=== PATIENT | female | born 1995 | race Caucasian/White ===

== ENCOUNTER 2016-09-22 16:48 | Emergency (ER) | payer BC, OTHER ==
[~2016-09-22] VITALS: Ht 157.5 cm; Wt 68.0 kg
[2016-09-22] MEDS ORDERED: BCP (17:25)
[2016-09-22 17:26] VITALS: BP 126/65; PULSE 89; RESP 18; TEMP 98.2; O2SAT 100
[2016-09-22 18:26] LABS: AUTOMATED NEUTROPHIL # 3.9 TH/MM3 (1.8-7.7); BASOPHIL # 0.1 TH/MM3 (0-0.2); BASOPHIL % 1.1 % (0.0-2.0); EOSINOPHIL # 0.2 TH/MM3 (0-0.4); EOSINOPHIL % 2.7 % (0.0-4.0); HEMATOCRIT 38.8 % (35.0-46.0); HEMO FLAGS DIFF FINAL; LYMPHOCYTE # 1.7 TH/MM3 (1.0-4.8); MEAN CORPUSCULAR HGB CONC 33.7 % (32.0-36.0); MONO % 5.6 % (0.0-8.0); NEUT % 63.6 % (16.0-70.0); PLATELET COUNT 311 TH/MM3 (150-450); RED BLOOD COUNT 4.51 MIL/MM3 (4.00-5.30); WHITE BLOOD COUNT 6.2 TH/MM3 (4.0-11.0)
[2016-09-22 18:33] LABS: AMPHETAMINE, URINE NEG (NEG); BARBITURATES, URINE NEG (NEG); COCAINE, URINE NEG (NEG)
--- NOTE | 2016-09-22 18:43 | PD ---
HPI Chief Complaint: Psychiatric Symptoms Time Seen by Provider: 18:39 Travel History International Travel<30 days: No Contact w/Intl Traveler<30days: No Traveled to known affect area: No History of Present Illness HPI 20-year-old female that presents to the ED for evaluation of psychiatric illness. Patient was Daniels acted by police after apparently mom contact the police because patient made some the Prevacid statements on Facebook and she was concerned. Patient has a history of depression and anxiety. Per patient she currently takes medications but she's been off of them because per patient it only worked for her. Per patient she does have an appointment next week with a psychiatrist to get evaluated for this and possibly start new medications. She'll partially mid the Facebook almonds and now she is here. She denies any suicidal or homicidal ideation to me. No drug or alcohol abuse. Denies any medical issues. Per patient her symptoms are moderate. Per patient she feels depressed, anhedonic as well as sad. Denies any other medical complaint at this time. No pain. Nothing makes the symptoms better or worse. PFSH Past Medical History Anxiety: Yes ?: Not Social History Alcohol Use: No Tobacco Use: Yes Allergies-Medications (Allergen,Severity, Reaction): Coded Allergies: No Known Allergies (Unverified , 09/22/16) Reported Meds & Prescriptions Reported Meds & Active Scripts Active Reported [Bcp] Review of Systems General / Constitutional: No: Fever, Chills, Weight Gain, Weight Loss, Other Eyes: No: Diploplia, Blurred Vision, Photophobia, Drainage, Redness, Foreign Body Sensation, Pain, Tearing, Blind Spots, Visual changes, Blindness, Other HENT: No: Headaches, Vertigo, Lightheadedness, Sore Throat, Rhinitis, Rhinorrhea, Congestion, Nosebleed, Neck Stiffness, Neck Pain, Masses, Gingival Bleeding, Dental Difficulties, Ear Discharge, Earache, Other Cardiovascular: No: Chest Pain or Discomfort, Palpitations, Irregular Rhythm, Tachycardia, Diaphoresis, Syncope, Dyspnea on exertion, Varicosities, Edema, Cyanosis, Varicosities, Phlebitis, Claudication, Other Respiratory: No: Cough, Shortness of Breath, Wheezing, Sneezing, Orthopnea, Hemoptysis, Stridor, Night Sweats, Pleuritic Pain, Other Gastrointestinal: No: Nausea, Vomiting, Diarrhea, Abdominal Pain, Hematemesis, Hematochezia, Constipation, Changes in Bowel Habits, Indigestion, Dysphagia, Loss of Appetite, Other Genitourinary: No: Urgency, Frequency, Dysuria, Nocturia, Hematuria, Decreased Urinary Output, Oliguria, Hesitancy, Dribbling, Incontinence, Pelvic Pain, Flank Pain, Dyspareunia, Discharge, Dysmenorrhea, Menorrhagia, Metorrhagia, Vaginal Bleeding, Other Musculoskeletal: No: Myalgias, Arthralgias, Limited ROM, Weakness, Cramping, Edema, Pain, Atrophy, Other Skin: No Rash, No Itching, No Dryness, No Lumps, No Hives, No Change in Pigmentation, No Change in nails, No Alopecia, No Lesions, No Breast Lumps, No Breast Tenderness, No Breast Swelling, No Other Neurologic: No: Weakness, Dizziness, Syncope, Focal Abnormalities, Coordination Problem, Tremor, Ataxia, Headache, Change in Mentation, Slurred Speech, Paresthesia, Incontinence, Seizures, Sensory Disturbance, Other Psychiatric: Positive: Anxiety, Depression, No: Suicidal Ideations, Disorder of Thought, Mood Disorder, Substance Abuse, Homicidal Ideation, Other Endocrine: No: Heat Intolerance, Cold Intolerance, Polyuria, Polydipsia, Other Hematologic/Lymphatic: No: Easy Bruising, Lymph Node Enlargement, Other Physical Exam Narrative GENERAL: SKIN: Warm and dry. HEAD: Atraumatic. Normocephalic. EYES: Pupils equal and round 4 mm reactive to light and accommodation. No scleral icterus. No injection or drainage. ENT: No nasal bleeding or discharge. Mucous membranes pink and moist. Tongue is midline. No uvula deviation. NECK: Trachea midline. No JVD. CARDIOVASCULAR: Regular rate and rhythm. No murmurs, S3, S4. RESPIRATORY: No accessory muscle use. Clear to auscultation. Breath sounds equal bilaterally. GASTROINTESTINAL: Abdomen soft, non-tender, nondistended. Hepatic and splenic margins not palpable. MUSCULOSKELETAL: Extremities without clubbing, cyanosis, or edema. No obvious deformities. Full range of motion of the upper and lower extremities bilaterally. 2+ pulses bilaterally. NEUROLOGICAL: Awake and alert. No obvious cranial nerve deficits. Motor grossly within normal limits. Five out of 5 muscle strength in the arms and legs. Normal speech. PSYCHIATRIC: Depressed mood and affect; insight and judgment normal. Data Data Last Documented VS Vital Signs Date Time Temp Pulse Resp B/P Pulse Ox O2 Delivery O2 Flow Rate FiO2 09/22/16 17:26 98.2 89 18 126/65 100 Room Air Orders Complete Blood Count With Diff (09/22/16 17:38) Comprehensive Metabolic Panel (09/22/16 17:38) Psych Screen (09/22/16 17:38) Drug Screen, Random Urine (09/22/16 17:38) Alcohol (Ethanol) (09/22/16 17:38) Labs Laboratory Tests Test 09/22/16 18:15 White Blood Count 6.2 TH/MM3 Red Blood Count 4.51 MIL/MM3 Hemoglobin 13.1 GM/DL Hematocrit 38.8 % Mean Corpuscular Volume 86.0 FL Mean Corpuscular Hemoglobin 29.0 PG Mean Corpuscular Hemoglobin 33.7 % Concent Red Cell Distribution Width 14.0 % Platelet Count 311 TH/MM3 Mean Platelet Volume 8.3 FL Neutrophils (%) (Auto) 63.6 % Lymphocytes (%) (Auto) 27.0 % Monocytes (%) (Auto) 5.6 % Eosinophils (%) (Auto) 2.7 % Basophils (%) (Auto) 1.1 % Neutrophils # (Auto) 3.9 TH/MM3 Lymphocytes # (Auto) 1.7 TH/MM3 Monocytes # (Auto) 0.3 TH/MM3 Eosinophils # (Auto) 0.2 TH/MM3 Basophils # (Auto) 0.1 TH/MM3 CBC Comment DIFF FINAL Differential Comment MDM Medical Decision Making Medical Screen Exam Complete: Yes Emergency Medical Condition: Yes Medical Record Reviewed: Yes Interpretation(s) CBC Diagram 09/22/16 18:15 Differential Diagnosis Depression versus suicidal ideation versus anxiety versus adjustment disorder versus mood disorder versus bipolar disorder versus schizophrenia versus paranoid disorder versus psychosis versus substance abuse versus alcohol abuse versus alcohol induced psychosis versus homicidality addition versus cutting versus personality disorder Narrative Course 20-year-old female that presents to the ED for evaluation of psychiatric illness. Patient was properly examined and was found to have signs and symptoms consistent with psychiatric illness. No sign of acute medical distress. Patient was medically cleared. Okay to be seen by psych. Mental health screening was discussed with the patient. 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
[2016-09-22 19:01] LABS: ANION GAP 6 MEQ/L (5-15)
[2016-09-22 19:04] LABS: ALKALINE PHOSPHATASE 62 U/L (45-117); ALT (GPT) 23 U/L (10-53); AST (GOT) 15 U/L (15-37); BICARBONATE 25.9 MEQ/L (21.0-32.0); BLOOD UREA NITROGEN 10 MG/DL (7-18); CHLORIDE 107 MEQ/L (98-107); GLOMERULAR FILTRATION RATE 77 ML/MIN (>89); POTASSIUM 3.7 MEQ/L (3.5-5.1); SODIUM (NA) 139 MEQ/L (136-145); TOTAL BILIRUBIN ADULT 0.7 MG/DL (0.2-1.0)
--- NOTE | 2016-09-22 20:01 | PD ---
History of Present Illness Chief Complaint: Psychiatric Symptoms Time Seen by Provider: 19:30 Travel History International Travel<30 Days: No Contact w/Intl Traveler<30days: No Known affected area: No Legal Status Legal Status: Daniels Act Daniels Act Signed By: Julianne Castillo History of Present Illness: History of Present Illness 20-year-old female with reported history of ADHD, anxiety and depression who presents to the ED under a Daniels Act initiate dby RUDDY. As per Ed documentation included in this report: Apparently mom contact the police because patient made some statements on Facebook and she was concerned. She denies any suicidal or homicidal ideation to me. No drug or alcohol abuse. Denies any medical issues. Per patient her symptoms are moderate. Per patient she feels depressed, anhedonic as well as sad. Patient is seen. Clinical record is reviewed. Case discussed with RN. Staff has contacted the patient's mother for collateral information. Patient is alert and oriented female who appears stated age. good hygiene. She is cooperative and forthcoming with information. Her speech is clear and goal directed. There is no indicatio of any hallucinations, no delusions and no paranoia. Mood is anxious with depression. She denies any suicidal or homicidal ideation. States that for the past 2 months she has experienced increase in symptoms of depression and anxiety including sadness,, irritability, poor coping. Stressors include moving in with [employer] for cannabinoids which she reports smoking a couple of times per week. her boyfriend and his father. She is experiencing some difficulties at work due to decreased attention and concentration as well. She stopped her medications approximately 4 months ago as well. In terms of her statements made on facebook she admits to witting about being tired of current living situation but denies that she wrote any statements saying she was going to kill herself. She has no previous suicide attempts , no hx of SIB. PFSH Past Medical History Anxiety: Yes ?: Not Psychiatric History Psychiatric History Hx Psychiatric Treatment: HX OF ANXIETY. TOOK MEDICATION THAT DIDN'T WORK. NO LONGER TAKES. HAS APPOINTMENT ON FRIDAY History of Inpatient Treatment: No Guns or firearms in home: No Social History Single female, lives with boyfriend. 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 Hx Alcohol Use: No Hx Tobacco Use: Yes Hx Substance Use: Yes Substance Use Type: Marijuana Hx of Substance Use Treatment: No Family Psychiatric History Brother with Adhd and bipolar disorder Allergies-Medications (Allergen,Severity, Reaction): Coded Allergies: No Known Allergies (Unverified , 09/22/16) Reported Meds & Prescriptions Reported Meds & Active Scripts Active Reported [Bcp] Review of Systems Except as stated in HPI: all other systems reviewed are Neg Psychiatric: COMPLAINS OF: Anxiety, Depression Exam Alert: Yes [place]: Person (ox4) Mood: Anxious Affect: Euthymic Speech: Clear, Logical Eye Contact: Normal Memory Intact: Comment (no impairment) Hallucinations: Other (negative) Suicidal: Ideation (denies any) Homicidal: Ideation (deneis any) Insight/Judgement Fair. Not impaired MDM Medical Decision Making Medical Record Reviewed: Yes Assessment/Plan 20 year old female who presents as a BA after her mother read some statements on Facebook that concerned her. These statements wee made in context of arguments with her boyfriend. She denies having written anything about killing herself. but statements in general about being tired of dealing with her current living situation. Does not meet BA criteria. Does not present imminent risk to self . She is requesting discharge. Has appointment on Friday for psychiatric follow up. Orders Complete Blood Count With Diff (09/22/16 17:38) Comprehensive Metabolic Panel (09/22/16 17:38) Psych Screen (09/22/16 17:38) Drug Screen, Random Urine (09/22/16 17:38) Alcohol (Ethanol) (09/22/16 17:38) Results Vital Signs Date Time Temp Pulse Resp B/P Pulse Ox O2 Delivery O2 Flow Rate FiO2 09/22/16 17:26 98.2 89 18 126/65 100 Room Air Laboratory Tests Test 09/22/16 09/22/16 17:30 18:15 Urine Opiates Screen NEG Urine Barbiturates Screen NEG Urine Amphetamines Screen NEG Urine Benzodiazepines Screen NEG Urine Cocaine Screen NEG Urine Cannabinoids Screen POS White Blood Count 6.2 Red Blood Count 4.51 Hemoglobin 13.1 Hematocrit 38.8 Mean Corpuscular Volume 86.0 Mean Corpuscular Hemoglobin 29.0 Mean Corpuscular Hemoglobin 33.7 Concent Red Cell Distribution Width 14.0 Platelet Count 311 Mean Platelet Volume 8.3 Neutrophils (%) (Auto) 63.6 Lymphocytes (%) (Auto) 27.0 Monocytes (%) (Auto) 5.6 Eosinophils (%) (Auto) 2.7 Basophils (%) (Auto) 1.1 Neutrophils # (Auto) 3.9 Lymphocytes # (Auto) 1.7 Monocytes # (Auto) 0.3 Eosinophils # (Auto) 0.2 Basophils # (Auto) 0.1 CBC Comment DIFF FINAL Differential Comment Sodium Level 139 Potassium Level 3.7 Chloride Level 107 Carbon Dioxide Level 25.9 Anion Gap 6 Blood Urea Nitrogen 10 Creatinine 0.92 Estimat Glomerular Filtration 77 Rate Random Glucose 112 Calcium Level 8.8 Total Bilirubin 0.7 Aspartate Amino Transf 15 (AST/SGOT) Alanine Aminotransferase 23 (ALT/SGPT) Alkaline Phosphatase 62 Total Protein 7.7 Albumin 3.7 Ethyl Alcohol Level LESS THAN 3 Diagnosis Primary Impression: Adjustment disorder Psychiatrically Cleared: Yes Departure Forms: Tests/Procedures Patient Instructions: General Instructions Med/ Other Pt Specific Info: No Meds Exist/No RX given Disposition: 01 DISCHARGE HOME Condition: Stable Problem Qualifiers Primary Impression: Adjustment disorder Qualified Code: F43.23 - Adjustment disorder with mixed anxiety and depressed mood Isela Soto Sep 22, 2016 20:01
== END 2016-09-22 20:10 | disposition home or self-care (01) ==
LOC: NEPJ 16:48
DX: F33.1 Major depressive disorder, recurrent, moderate (principal); Z87.891 Personal history of nicotine dependence; F43.20 Adjustment disorder, unspecified
CPT/HCPCS: 80053; 80307; 80320; 85025; 99284